=== PATIENT | female | born 1970 | race Caucasian/White ===

== ENCOUNTER 2017-02-24 17:35 | Emergency (ER) | payer OTHER ==
[~2017-02-24] VITALS: Ht 162.6 cm; Wt 70.8 kg
[2017-02-24 22:00] VITALS: BP 139/79
== END 2017-02-24 22:00 | disposition home or self-care (01) ==
LOC: ED 17:35
DX: N61.0 Mastitis without abscess (principal)

== ENCOUNTER → 2017-06-02 | Outpatient (CLI) | payer OTHER | END | disposition home or self-care (01) | LOC: US 16:00 | PROC: BW4GZZZ Ultrasonography of Pelvic Region (ICD-10-PCS; principal; 2017-06-02) | DX: N92.6 Irregular menstruation, unspecified (principal) ==

== ENCOUNTER → 2017-06-05 | Outpatient (CLI) | payer OTHER | END | disposition home or self-care (01) | LOC: LB 17:12 | DX: Z87.42 Personal history of other diseases of the female genital tract (principal); N92.6 Irregular menstruation, unspecified | CPT/HCPCS: 82672; 84402; 84403 ==